=== PATIENT | female | born 1960 | race Caucasian/White ===

== ENCOUNTER 2021-12-29 13:57 | Inpatient (IN) ==
[2021-12-29] MEDS ORDERED: Naloxone 0.4 MG/ML INJ IVP PRN (18:17)
[2021-12-29] MEDS ORDERED: Ondansetron ODT 4 MG TAB.RAPDIS SL PRN (18:17)
[2021-12-29] MEDS ORDERED: Vancomycin 1,500 MG/265 ML IV.SOLN IVPB ONE (19:00)
[2021-12-29] MEDS: Cefepime HCl 2,000 MG in 0.9 % Sodium Chloride 10 ML IVP SCH (20:06)
[2021-12-29] MEDS: Chlorhexidine Rinse 15 ML MOUTHWASH MM SCH (20:06)
[2021-12-29] MEDS: Ringers Solution, Lactated 1,000 ML IVC SCH (20:08)
[2021-12-29] MEDS: Budesonide/Formoterol 160/4.5 1 PUFF INH IH SCH (20:11)
[2021-12-29] MEDS: Ipratropium/Albuterol Neb 3 ML IH SCH ×2 (20:11→22:50)
[2021-12-29] MEDS: *HR* Heparin 5,000 UNIT/ML VIAL SQ SCH (20:17)
[2021-12-29] MEDS ORDERED: Vancomycin 1,250 MG/262.5 ML IV.SOLN IVPB SCH (21:00)
[2021-12-30 02:53] LABS: Hemoglobin 10.3 g/dL (11.5-15.4); Red Cell Distribution Width 12.6 % (11.5-14.5)
[2021-12-30 02:55] LABS: Mean Corpuscular HGB Conc 31.2 g/dL (31.6-35.5); Mean Corpuscular Hemoglobin 29.7 pg (28.0-33.3); Mean Corpuscular Volume 95.1 fL (83.0-100.0); Mean Platelet Volume 9.2 fL (9.4-12.4); Platelet Count 339 K/mcL (140-400); Red Blood Count 3.47 M/mcL (3.82-4.97)
[2021-12-30 03:16] LABS: BUN/Creatinine Ratio 22 (6-26); Blood Urea Nitrogen 17 mg/dL (8-23); Calcium 8.8 mg/dL (8.6-10.3); Carbon Dioxide 28 mEq/L (23-29); Chloride 98 mEq/L (98-107); Chol/HDL Ratio 6.3 (0-4.9); Cholesterol 132 mg/dL (< 200); Glucose 152 mg/dL (70-105); HDL Cholesterol 21 mg/dL (40-59); LDL Cholesterol,Calculated 87 mg/dL (< 100); Magnesium 2.3 mg/dL (1.6-2.6); Osmolality,Calculated 287 (280-300); Phosphorous 4.4 mg/dL (2.7-4.5); Potassium 4.3 mEq/L (3.5-5.1); Sodium 136 mEq/L (136-145); Triglycerides 120 mg/dL (< 150); eGFR For African Americans > 60 (> 60); eGFR For Non-African Americans > 60 (> 60)
[2021-12-30 03:33] LABS: White Blood Count 33.3 K/mcL (4.3-11.1)
[2021-12-30] MEDS: Ipratropium/Albuterol Neb 3 ML IH SCH ×5 (04:01→20:03)
[2021-12-30] MEDS: *HR* Heparin 5,000 UNIT/ML VIAL SQ SCH (06:33)
[2021-12-30] MEDS: Cefepime HCl 2,000 MG in 0.9 % Sodium Chloride 10 ML IVP SCH ×3 (06:37→23:25)
[2021-12-30] MEDS: Budesonide/Formoterol 160/4.5 1 PUFF INH IH SCH ×2 (07:39→20:03)
[2021-12-30] MEDS ORDERED: Isovue-370 500 ML BOTTLE IVP ONE (08:11)
[2021-12-30] MEDS: Vancomycin 1,250 MG/262.5 ML IV.SOLN IVPB SCH ×2 (08:27→19:40)
[2021-12-30] MEDS: Metoprolol XL (24 HR) Succ 25 MG TAB.ER.24H PO SCH ×2 (08:28→11:17)
[2021-12-30] MEDS: lisinopriL 10 MG TABLET PO SCH (08:28)
[2021-12-30] MEDS: Ringers Solution, Lactated 1,000 ML IVC SCH (08:34)
[2021-12-30] MEDS ORDERED: Gadolinium Contrast Agent (WT Based) IV PRN (09:24)
[2021-12-30] MEDS: Chlorhexidine Rinse 15 ML MOUTHWASH MM SCH ×2 (09:39→19:41)
[2021-12-30] MEDS: Acetaminophen 325 MG TABLET PO PRN (17:23)
[2021-12-31] MEDS: Ipratropium/Albuterol Neb 3 ML IH SCH ×7 (00:02→23:46)
[2021-12-31 03:26] LABS: BUN/Creatinine Ratio 31 (6-26); Blood Urea Nitrogen 15 mg/dL (8-23); Calcium 8.5 mg/dL (8.6-10.3); Carbon Dioxide 26 mEq/L (23-29); Chloride 101 mEq/L (98-107); Glucose 139 mg/dL (70-105); Osmolality,Calculated 285 (280-300); Potassium 5.2 mEq/L (3.5-5.1); Sodium 136 mEq/L (136-145); eGFR For African Americans > 60 (> 60); eGFR For Non-African Americans > 60 (> 60)
[2021-12-31] MEDS: Budesonide/Formoterol 160/4.5 1 PUFF INH IH SCH ×2 (07:42→20:05)
[2021-12-31 07:44] LABS: Hemoglobin 9.7 g/dL (11.5-15.4); Mean Corpuscular HGB Conc 31.3 g/dL (31.6-35.5); Mean Platelet Volume 9.6 fL (9.4-12.4); Platelet Count 301 K/mcL (140-400); Red Blood Count 3.23 M/mcL (3.82-4.97); Red Cell Distribution Width 12.7 % (11.5-14.5); White Blood Count 27.9 K/mcL (4.3-11.1)
[2021-12-31 08:14] LABS: Monocytes # 0.3 K/mcL (0.0-1.3); Neutrophils # 25.7 K/mcL (1.6-8.9); Platelet Estimate Normal (Normal)
[2021-12-31 08:39] LABS: INR 1.4; Prothrombin Time 15.7 Seconds (9.4-12.1)
[2021-12-31] MEDS: Metoprolol XL (24 HR) Succ 25 MG TAB.ER.24H PO SCH (10:07)
[2021-12-31] MEDS: lisinopriL 10 MG TABLET PO SCH (10:08)
[2021-12-31] MEDS: Cefepime HCl 2,000 MG in 0.9 % Sodium Chloride 10 ML IVP SCH ×3 (10:08→23:24)
[2021-12-31] MEDS: Chlorhexidine Rinse 15 ML MOUTHWASH MM SCH ×2 (10:08→21:09)
[2021-12-31] MEDS: Vancomycin 1,250 MG/262.5 ML IV.SOLN IVPB SCH (10:18)
[2021-12-31 19:59] LABS: BUN/Creatinine Ratio 22 (6-26); Blood Urea Nitrogen 14 mg/dL (8-23); Calcium 8.2 mg/dL (8.6-10.3); Carbon Dioxide 30 mEq/L (23-29); Chloride 100 mEq/L (98-107); Glucose 180 mg/dL (70-105); Magnesium 2.1 mg/dL (1.6-2.6); Osmolality,Calculated 289 (280-300); Potassium 4.1 mEq/L (3.5-5.1); Sodium 137 mEq/L (136-145); eGFR For African Americans > 60 (> 60); eGFR For Non-African Americans > 60 (> 60)
[2022-01-01] MEDS: Ipratropium/Albuterol Neb 3 ML IH SCH ×6 (03:41→23:22)
[2022-01-01] MEDS: Budesonide/Formoterol 160/4.5 1 PUFF INH IH SCH ×2 (07:43→20:32)
[2022-01-01 08:33] LABS: Hemoglobin 10.4 g/dL (11.5-15.4); Mean Corpuscular HGB Conc 31.5 g/dL (31.6-35.5); Mean Corpuscular Hemoglobin 29.7 pg (28.0-33.3); Mean Corpuscular Volume 94.3 fL (83.0-100.0); Mean Platelet Volume 8.8 fL (9.4-12.4); Platelet Count 350 K/mcL (140-400); Red Cell Distribution Width 12.9 % (11.5-14.5); White Blood Count 27.6 K/mcL (4.3-11.1)
[2022-01-01 08:55] LABS: BUN/Creatinine Ratio 25 (6-26); Blood Urea Nitrogen 13 mg/dL (8-23); Calcium 8.5 mg/dL (8.6-10.3); Carbon Dioxide 30 mEq/L (23-29); Chloride 101 mEq/L (98-107); Glucose 157 mg/dL (70-105); Osmolality,Calculated 287 (280-300); Potassium 4.1 mEq/L (3.5-5.1); Sodium 137 mEq/L (136-145); eGFR For African Americans > 60 (> 60); eGFR For Non-African Americans > 60 (> 60)
[2022-01-01 09:35] LABS: Neutrophils # 21.5 K/mcL (1.6-8.9)
[2022-01-01 09:37] LABS: Eosinophils # 0.6 K/mcL (0.0-0.6)
[2022-01-01 09:38] LABS: Platelet Estimate Normal (Normal)
[2022-01-01] MEDS: Metoprolol XL (24 HR) Succ 25 MG TAB.ER.24H PO SCH (10:01)
[2022-01-01] MEDS: Chlorhexidine Rinse 15 ML MOUTHWASH MM SCH ×2 (10:01→21:35)
[2022-01-01] MEDS: lisinopriL 10 MG TABLET PO SCH (10:01)
[2022-01-01] MEDS: Cefepime HCl 2,000 MG in 0.9 % Sodium Chloride 10 ML IVP SCH ×2 (10:13→16:46)
[2022-01-01 11:31] LABS: RBC,Pleural Fluid 15000 RBC/mcL
[2022-01-01 11:57] LABS: Glucose,Pleural Fluid 126 mg/dL (No Ref Range); LDH,Pleural Fluid > 1200 Units/L (No Ref Range)
[2022-01-01 14:00] LABS: Appearance of Pleural Fl Hazy (Clear)
[2022-01-01 14:31] LABS: Lactate Dehydrogenase 346 Units/L (140-271); Total Protein 6.4 g/dL (6.4-8.9)
[2022-01-01] MEDS: Acetaminophen 325 MG TABLET PO PRN (18:38)
[2022-01-02] MEDS: Cefepime HCl 2,000 MG in 0.9 % Sodium Chloride 10 ML IVP SCH ×3 (00:55→16:54)
[2022-01-02 00:56] LABS: Basophils # 0.1 K/mcL (0.0-0.2); Basophils % 0.4 %; Eosinophils # 0.5 K/mcL (0.0-0.6); Eosinophils % 1.7 %; Hematocrit 32.9 % (35.3-44.9); Hemoglobin 10.2 g/dL (11.5-15.4); Immature Granulocytes % 3.8 % (0-4); Lymphocytes # 2.5 K/mcL (0.6-4.6); Lymphocytes % 8.2 %; Mean Corpuscular Hemoglobin 29.1 pg (28.0-33.3); Mean Platelet Volume 8.9 fL (9.4-12.4); Monocytes # 2.9 K/mcL (0.0-1.3); Monocytes % 9.4 %; Platelet Count 349 K/mcL (140-400); Red Cell Distribution Width 12.9 % (11.5-14.5); Segmented Neutrophils % 76.5 %
[2022-01-02 01:08] LABS: Neutrophils # 23.3 K/mcL (1.6-8.9); White Blood Count 30.4 K/mcL (4.3-11.1)
[2022-01-02 01:10] LABS: BUN/Creatinine Ratio 27 (6-26); Blood Urea Nitrogen 14 mg/dL (8-23); Calcium 8.5 mg/dL (8.6-10.3); Carbon Dioxide 28 mEq/L (23-29); Chloride 101 mEq/L (98-107); Glucose 165 mg/dL (70-105); Osmolality,Calculated 288 (280-300); Potassium 3.8 mEq/L (3.5-5.1); Sodium 137 mEq/L (136-145); eGFR For African Americans > 60 (> 60); eGFR For Non-African Americans > 60 (> 60)
[2022-01-02] MEDS: Ipratropium/Albuterol Neb 3 ML IH SCH ×2 (03:42→07:31)
[2022-01-02] MEDS: *HR* LORazepam 1 MG TABLET PO PRN ×3 (04:22→21:48)
[2022-01-02] MEDS: Budesonide/Formoterol 160/4.5 1 PUFF INH IH SCH ×2 (07:31→20:47)
[2022-01-02] MEDS: lisinopriL 10 MG TABLET PO SCH (11:32)
[2022-01-02] MEDS: Metoprolol XL (24 HR) Succ 25 MG TAB.ER.24H PO SCH (11:32)
[2022-01-02] MEDS: Chlorhexidine Rinse 15 ML MOUTHWASH MM SCH ×2 (11:33→21:48)
[2022-01-02] MEDS: Acetaminophen 325 MG TABLET PO PRN (14:11)
[2022-01-02] MEDS: MetroNIDAZOLE 500 MG/100 ML 500 MG/100 ML BAG IVPB SCH (17:11)
[2022-01-02] MEDS ORDERED: 0.9 % Sodium Chloride 500 ML IVC ONE (18:36)
[2022-01-02] MEDS: Melatonin 3 MG TABLET PO PRN (21:48)
[2022-01-03] MEDS: Cefepime HCl 2,000 MG in 0.9 % Sodium Chloride 10 ML IVP SCH ×3 (00:26→15:23)
[2022-01-03] MEDS: MetroNIDAZOLE 500 MG/100 ML 500 MG/100 ML BAG IVPB SCH ×3 (00:27→15:21)
[2022-01-03 00:36] LABS: Basophils % 0.5 %; Mean Platelet Volume 8.9 fL (9.4-12.4)
[2022-01-03 00:38] LABS: Basophils # 0.2 K/mcL (0.0-0.2); Eosinophils # 0.6 K/mcL (0.0-0.6); Eosinophils % 1.7 %; Hemoglobin 9.8 g/dL (11.5-15.4); Immature Granulocytes % 4.2 % (0-4); Lymphocytes # 2.5 K/mcL (0.6-4.6); Lymphocytes % 7.6 %; Mean Corpuscular HGB Conc 31.6 g/dL (31.6-35.5); Mean Corpuscular Hemoglobin 29.2 pg (28.0-33.3); Mean Corpuscular Volume 92.3 fL (83.0-100.0); Monocytes % 8.1 %; Neutrophils # 25.5 K/mcL (1.6-8.9); Platelet Count 367 K/mcL (140-400); Red Blood Count 3.36 M/mcL (3.82-4.97); Red Cell Distribution Width 12.7 % (11.5-14.5); Segmented Neutrophils % 77.9 %
[2022-01-03 00:53] LABS: BUN/Creatinine Ratio 31 (6-26); Blood Urea Nitrogen 13 mg/dL (8-23); Calcium 8.4 mg/dL (8.6-10.3); Carbon Dioxide 27 mEq/L (23-29); Chloride 102 mEq/L (98-107); Glucose 146 mg/dL (70-105); Osmolality,Calculated 287 (280-300); Potassium 3.9 mEq/L (3.5-5.1); Sodium 137 mEq/L (136-145); eGFR For African Americans > 60 (> 60); eGFR For Non-African Americans > 60 (> 60)
[2022-01-03 00:57] LABS: Monocytes # 2.7 K/mcL (0.0-1.3); White Blood Count 32.7 K/mcL (4.3-11.1)
[2022-01-03 01:39] LABS: Platelet Estimate Normal (Normal)
[2022-01-03] MEDS: Acetaminophen 325 MG TABLET PO PRN (07:27)
[2022-01-03] MEDS: Budesonide/Formoterol 160/4.5 1 PUFF INH IH SCH ×2 (07:59→20:27)
[2022-01-03] MEDS: Metoprolol XL (24 HR) Succ 25 MG TAB.ER.24H PO SCH (08:33)
[2022-01-03] MEDS: lisinopriL 10 MG TABLET PO SCH (08:33)
[2022-01-03] MEDS: Chlorhexidine Rinse 15 ML MOUTHWASH MM SCH ×2 (08:34→20:40)
[2022-01-03] MEDS: *HR* LORazepam 1 MG TABLET PO PRN ×2 (11:48→20:40)
[2022-01-03 17:25] LABS: Fluid Source for Cholesterol PLEURAL FLUID
[2022-01-03] MEDS: Mirtazapine 15 MG TABLET PO SCH (20:40)
[2022-01-04] MEDS: Cefepime HCl 2,000 MG in 0.9 % Sodium Chloride 10 ML IVP SCH ×3 (00:43→17:45)
[2022-01-04] MEDS: MetroNIDAZOLE 500 MG/100 ML 500 MG/100 ML BAG IVPB SCH ×3 (00:44→17:52)
[2022-01-04 01:05] LABS: Eosinophils % 1.3 %; Hemoglobin 10.1 g/dL (11.5-15.4)
[2022-01-04 01:07] LABS: Basophils # 0.1 K/mcL (0.0-0.2); Basophils % 0.2 %; Eosinophils # 0.5 K/mcL (0.0-0.6); Hematocrit 32.4 % (35.3-44.9); Immature Granulocytes % 5.5 % (0-4); Lymphocytes % 7.9 %; Mean Corpuscular HGB Conc 31.2 g/dL (31.6-35.5); Mean Corpuscular Hemoglobin 28.9 pg (28.0-33.3); Mean Corpuscular Volume 92.8 fL (83.0-100.0); Monocytes # 3.1 K/mcL (0.0-1.3); Monocytes % 8.2 %; Neutrophils # 29.1 K/mcL (1.6-8.9); Platelet Count 414 K/mcL (140-400); Red Blood Count 3.49 M/mcL (3.82-4.97); Segmented Neutrophils % 76.9 %
[2022-01-04 01:21] LABS: BUN/Creatinine Ratio 28 (6-26); Blood Urea Nitrogen 15 mg/dL (8-23); Calcium 8.7 mg/dL (8.6-10.3); Carbon Dioxide 27 mEq/L (23-29); Chloride 102 mEq/L (98-107); Glucose 129 mg/dL (70-105); Osmolality,Calculated 287 (280-300); Phosphorous 3.2 mg/dL (2.7-4.5); Potassium 4.2 mEq/L (3.5-5.1); Sodium 137 mEq/L (136-145); eGFR For African Americans > 60 (> 60); eGFR For Non-African Americans > 60 (> 60)
[2022-01-04 01:24] LABS: White Blood Count 37.8 K/mcL (4.3-11.1)
[2022-01-04 01:32] LABS: Platelet Estimate Normal (Normal)
[2022-01-04] MEDS: Budesonide/Formoterol 160/4.5 1 PUFF INH IH SCH (07:29)
[2022-01-04] MEDS: lisinopriL 10 MG TABLET PO SCH (08:40)
[2022-01-04] MEDS: Metoprolol XL (24 HR) Succ 25 MG TAB.ER.24H PO SCH (08:40)
[2022-01-04] MEDS: Chlorhexidine Rinse 15 ML MOUTHWASH MM SCH ×2 (08:42→19:58)
[2022-01-04] MEDS ORDERED: 0.9 % Sodium Chloride 1,000 ML IVC ONE (10:52)
[2022-01-04 11:07] LABS: Cholesterol,Body Fluid 70 mg/dL
[2022-01-04] MEDS: *HR* LORazepam 1 MG TABLET PO PRN (17:52)
[2022-01-04] MEDS: Melatonin 3 MG TABLET PO PRN (19:58)
[2022-01-04] MEDS: Mirtazapine 15 MG TABLET PO SCH (19:58)
[2022-01-05] MEDS: Cefepime HCl 2,000 MG in 0.9 % Sodium Chloride 10 ML IVP SCH ×4 (00:10→23:26)
[2022-01-05] MEDS: MetroNIDAZOLE 500 MG/100 ML 500 MG/100 ML BAG IVPB SCH ×3 (00:10→16:52)
[2022-01-05 06:46] LABS: Mean Corpuscular HGB Conc 30.6 g/dL (31.6-35.5)
[2022-01-05 06:47] LABS: Basophils # 0.1 K/mcL (0.0-0.2); Basophils % 0.2 %; Eosinophils # 0.5 K/mcL (0.0-0.6); Hemoglobin 9.5 g/dL (11.5-15.4); Immature Granulocytes % 6.1 % (0-4); Lymphocytes # 3.3 K/mcL (0.6-4.6); Lymphocytes % 7.3 %; Mean Corpuscular Hemoglobin 28.8 pg (28.0-33.3); Mean Corpuscular Volume 93.9 fL (83.0-100.0); Monocytes # 3.8 K/mcL (0.0-1.3); Monocytes % 8.4 %; Neutrophils # 34.8 K/mcL (1.6-8.9); Platelet Count 432 K/mcL (140-400); Red Cell Distribution Width 13.3 % (11.5-14.5)
[2022-01-05 06:50] LABS: White Blood Count 45.2 K/mcL (4.3-11.1)
[2022-01-05 07:06] LABS: BUN/Creatinine Ratio 41 (6-26); Blood Urea Nitrogen 19 mg/dL (8-23); Calcium 8.4 mg/dL (8.6-10.3); Carbon Dioxide 26 mEq/L (23-29); Chloride 104 mEq/L (98-107); Glucose 141 mg/dL (70-105); Osmolality,Calculated 289 (280-300); Potassium 3.6 mEq/L (3.5-5.1); Sodium 137 mEq/L (136-145); eGFR For African Americans > 60 (> 60); eGFR For Non-African Americans > 60 (> 60)
[2022-01-05] MEDS: Metoprolol XL (24 HR) Succ 25 MG TAB.ER.24H PO SCH (08:59)
[2022-01-05] MEDS: Chlorhexidine Rinse 15 ML MOUTHWASH MM SCH ×2 (08:59→19:36)
[2022-01-05] MEDS: lisinopriL 10 MG TABLET PO SCH (08:59)
[2022-01-05] MEDS ORDERED: *HR* Metoprolol 5 MG/5 ML VIAL IVP ONE (12:30)
[2022-01-05] MEDS: *HR* LORazepam 1 MG TABLET PO PRN (12:31)
[2022-01-05] MEDS ORDERED: Levalbuterol Neb 1.25 MG/3 ML IH STA (14:41)
[2022-01-05] MEDS ORDERED: methylPREDNISolone 125 MG/2 ML VIAL IVP ONE (14:43)
[2022-01-05] MEDS: GuaiFENesin/Dextromethorphan TABLET PO SCH ×2 (15:02→19:36)
[2022-01-05] MEDS ORDERED: Perflutren Lipid Microsphere 1.3 ML in 0.9 % Sodium Chloride 8.7 ML IVP PRN (15:52)
[2022-01-05] MEDS ORDERED: Magnesium Sulfate 1 GM/102 ML PIGGYBACK IVPB ONE (15:56)
[2022-01-05] MEDS ORDERED: DilTIAZem 50 MG in 0.9 % Sodium Chloride 40 ML IVC SCH (16:00)
[2022-01-05] MEDS ORDERED: Isovue-370 500 ML BOTTLE IVP ONE (16:01)
[2022-01-05] MEDS ORDERED: Acetaminophen IV 1,000 MG/100 ML BAG IVPB STA (16:18)
[2022-01-05] MEDS ORDERED: Morphine Sulfate 2 MG/ML SYRINGE IVP PRN (16:27)
[2022-01-05] MEDS: Acetaminophen 325 MG TABLET PO PRN (16:30)
[2022-01-05 16:34] LABS: VBG Ionized Calcium 1.14 mmol/L (1.15-1.35)
[2022-01-05] MEDS: DilTIAZem 50 MG in 0.9 % Sodium Chloride 40 ML IVC SCH ×2 (17:05→22:09)
[2022-01-05 17:06] LABS: Magnesium 1.9 mg/dL (1.6-2.6)
[2022-01-05 17:20] LABS: Thyroid Stimulating Hormone 1.661 mcIU/mL (0.340-5.600)
[2022-01-05] MEDS: Vancomycin 1,250 MG/262.5 ML IV.SOLN IVPB SCH (18:56)
[2022-01-05] MEDS: Mirtazapine 15 MG TABLET PO SCH (19:36)
[2022-01-05] MEDS ORDERED: 0.9 % Sodium Chloride 500 ML IVC ONE (23:02)
[2022-01-05] MEDS ORDERED: 0.9 % Sodium Chloride 500 ML ONE (23:23)
[2022-01-06] MEDS: MetroNIDAZOLE 500 MG/100 ML 500 MG/100 ML BAG IVPB SCH ×4 (00:04→23:35)
[2022-01-06] MEDS ORDERED: 0.9 % Sodium Chloride 1,000 ML IVC SCH (01:00)
[2022-01-06] MEDS: *HR* LORazepam 1 MG TABLET PO PRN ×3 (01:31→20:02)
[2022-01-06] MEDS: Vancomycin 1,250 MG/262.5 ML IV.SOLN IVPB SCH ×2 (05:45→18:18)
[2022-01-06] MEDS: MethylPREDNISolone 40 MG/ML VIAL IVP SCH ×2 (05:46→18:17)
[2022-01-06 06:04] LABS: Lymphocytes % 2.8 %; Red Cell Distribution Width 13.2 % (11.5-14.5)
[2022-01-06 06:05] LABS: Hematocrit 30.1 % (35.3-44.9); Hemoglobin 9.4 g/dL (11.5-15.4); Immature Granulocytes % 5.4 % (0-4); Lymphocytes # 1.8 K/mcL (0.6-4.6); Mean Corpuscular HGB Conc 31.2 g/dL (31.6-35.5); Mean Corpuscular Hemoglobin 29.4 pg (28.0-33.3); Mean Corpuscular Volume 94.1 fL (83.0-100.0); Mean Platelet Volume 9.3 fL (9.4-12.4); Monocytes # 2.2 K/mcL (0.0-1.3); Monocytes % 3.4 %; Platelet Count 428 K/mcL (140-400); Segmented Neutrophils % 88.4 %
[2022-01-06 06:18] LABS: Neutrophils # 56.3 K/mcL (1.6-8.9); White Blood Count 63.7 K/mcL (4.3-11.1)
[2022-01-06 06:19] LABS: BUN/Creatinine Ratio 42 (6-26); Blood Urea Nitrogen 23 mg/dL (8-23); Calcium 8.3 mg/dL (8.6-10.3); Carbon Dioxide 25 mEq/L (23-29); Chloride 108 mEq/L (98-107); Glucose 325 mg/dL (70-105); Magnesium 2.3 mg/dL (1.6-2.6); Osmolality,Calculated 306 (280-300); Phosphorous 3.1 mg/dL (2.7-4.5); Sodium 140 mEq/L (136-145); eGFR For African Americans > 60 (> 60); eGFR For Non-African Americans > 60 (> 60)
[2022-01-06 06:28] LABS: Platelet Estimate Normal (Normal)
[2022-01-06] MEDS: Cefepime HCl 2,000 MG in 0.9 % Sodium Chloride 10 ML IVP SCH ×3 (08:32→23:36)
[2022-01-06] MEDS: Metoprolol XL (24 HR) Succ 25 MG TAB.ER.24H PO SCH (08:33)
[2022-01-06] MEDS: Chlorhexidine Rinse 15 ML MOUTHWASH MM SCH ×2 (08:33→20:02)
[2022-01-06] MEDS: GuaiFENesin/Dextromethorphan TABLET PO SCH ×2 (08:34→20:02)
[2022-01-06] MEDS ORDERED: Furosemide 40 MG/4 ML VIAL IVP ONE (13:00)
[2022-01-06] MEDS ORDERED: Lidocaine/EPI 1:200k 1% PF 10 ML VIAL INFILT ONE (14:47)
[2022-01-06] MEDS ORDERED: *HR* FentaNYL (PF) 100 MCG/2 ML VIAL ONE (14:52)
[2022-01-06] MEDS ORDERED: *HR* FentaNYL (PF) 100 MCG/2 ML VIAL IVP ONE (14:57)
[2022-01-06] MEDS: Mirtazapine 15 MG TABLET PO SCH (20:02)
[2022-01-06] MEDS: Morphine Sulfate 2 MG/ML SYRINGE IVP PRN (23:37)
[2022-01-07] MEDS: MethylPREDNISolone 40 MG/ML VIAL IVP SCH (06:44)
[2022-01-07] MEDS: *HR* LORazepam 1 MG TABLET PO PRN (06:53)
[2022-01-07 08:23] LABS: Vancomycin,Trough 7 mcg/mL (5-10)
[2022-01-07 08:42] LABS: Troponin I 0.18 ng/mL (< 0.04)
[2022-01-07 09:06] LABS: BUN/Creatinine Ratio 43 (6-26); Blood Urea Nitrogen 23 mg/dL (8-23); Calcium 8.6 mg/dL (8.6-10.3); Carbon Dioxide 22 mEq/L (23-29); Chloride 109 mEq/L (98-107); Glucose 285 mg/dL (70-105); Osmolality,Calculated 304 (280-300); Phosphorous 2.9 mg/dL (2.7-4.5); Potassium 4.2 mEq/L (3.5-5.1); Sodium 140 mEq/L (136-145); eGFR For African Americans > 60 (> 60); eGFR For Non-African Americans > 60 (> 60)
[2022-01-07] MEDS: Vancomycin 1,250 MG/262.5 ML IV.SOLN IVPB SCH (09:35)
[2022-01-07] MEDS: MetroNIDAZOLE 500 MG/100 ML 500 MG/100 ML BAG IVPB SCH (10:10)
[2022-01-07] MEDS: Morphine Sulfate 2 MG/ML SYRINGE IVP PRN ×2 (10:13→14:30)
[2022-01-07 10:14] LABS: Hemoglobin 9.5 g/dL (11.5-15.4); Red Cell Distribution Width 13.3 % (11.5-14.5)
[2022-01-07] MEDS: Chlorhexidine Rinse 15 ML MOUTHWASH MM SCH (10:14)
[2022-01-07 10:15] LABS: Mean Corpuscular HGB Conc 30.6 g/dL (31.6-35.5); Mean Corpuscular Hemoglobin 29.1 pg (28.0-33.3); Mean Corpuscular Volume 95.1 fL (83.0-100.0); Mean Platelet Volume 9.2 fL (9.4-12.4); Platelet Count 568 K/mcL (140-400); Red Blood Count 3.26 M/mcL (3.82-4.97)
[2022-01-07] MEDS: GuaiFENesin/Dextromethorphan TABLET PO SCH (10:15)
[2022-01-07] MEDS: Vancomycin 1,750 MG/517.5 ML IV.SOLN IVPB SCH ×2 (10:15→11:31)
[2022-01-07] MEDS: Metoprolol XL (24 HR) Succ 25 MG TAB.ER.24H PO SCH (10:15)
[2022-01-07] MEDS: Cefepime HCl 2,000 MG in 0.9 % Sodium Chloride 10 ML IVP SCH (10:15)
[2022-01-07 10:34] LABS: White Blood Count 61.6 K/mcL (4.3-11.1)
[2022-01-07] MEDS ORDERED: Doxycycline 100 MG in 0.9 % Sodium Chloride Mini Bag 100 ML IVPB SCH (11:07)
[2022-01-07] MEDS ORDERED: levoFLOXacin 750 MG TABLET PO SCH (11:15)
[2022-01-07] MEDS: Levalbuterol Neb 1.25 MG/3 ML IH SCH ×2 (11:44→15:21)
[2022-01-07 11:56] VITALS: BP 124/75; PULSE 106; TEMP 97.7
[2022-01-07 12:22] LABS: Lymphocytes # 0.6 K/mcL (0.6-4.6); Monocytes # 2.5 K/mcL (0.0-1.3); Neutrophils # 58.5 K/mcL (1.6-8.9)
[2022-01-07 12:23] LABS: Hypochromasia Present (Not Present); Platelet Estimate Increased (Normal); Poikilocytosis 1+ (Not Present)
[2022-01-07 15:43] VITALS: O2SAT 95
== END 2022-01-07 16:23 | disposition hospice, home (50) | DRG 180 ==
LOC: 3NENU → SUATTDRO 12-30 22:28 → 2ANU 01-06 15:43
PROVIDERS: ADMIT Internal Medicine; ATTEND Student in an Organized Health Care Education/Training Program